=== PATIENT | female | born 1950 | race Hispanic/Latino ===

== ENCOUNTER 2019-07-30 05:30 | Day surgery (SDC) | payer MEDICARE ==
[2019-07-29 10:46] VITALS: BP 141/78
[2019-07-29 10:48] LABS: BASOPHILS % (AUTO) 0.4 % (0.0-5.0); EOSINOPHILS % (AUTO) 1.7 % (0.0-8.0); HEMATOCRIT 37.6 % (36-48); MEAN CORPUSCULAR HEMOGLOBIN 26.7 pg (27.0-33.0); MEAN CORPUSCULAR HGB CONC 32.2 g/dL (32.0-36.0); MONOCYTES % (AUTO) 5.1 % (3.0-13.0); NEUTROPHILS % (AUTO) 65.5 % (40.0-77.0); PLATELET COUNT (AUTO) 273 K/uL (130-400); RED BLOOD CELL COUNT(AUTO) 4.53 MIL/uL (4.00-5.50); RED CELL DISTRIBUTION WIDTH 15.6 % (11.0-15.5); WHITE BLOOD COUNT (AUTO) 6.9 K/uL (4.8-10.8)
[2019-07-29 11:03] LABS: CREATININE 0.8 mg/dL (0.5-1.5); POTASSIUM 4.2 mmol/L (3.5-5.1)
[2019-07-30] VITALS (16 sets, daily range): BP systolic 97–137; BP diastolic 51–75
[~2019-07-30] VITALS: Ht 149.9 cm; Wt 81.3 kg
[~2019-07-30 05:30] MED LIST: ATOR40TA71 PO; Ergocalciferol PO; LISI1TAB29 PO
[2019-07-30] MEDS ORDERED: LACTATED RINGERS 1000ML 1,000 ML IV ONE (05:42)
[2019-07-30] MEDS ORDERED: STRONG IODINE SOLN 14ML BOTTLE ONE (07:07)
[2019-07-30] MEDS ORDERED: ACETIC ACID 0.25% 1,000 ML IRRIG.SOLN ONE (07:07)
[2019-07-30] MEDS ORDERED: PROPOFOL 10 MG/ML 20ML VIAL IV ONE (07:20)
[2019-07-30] MEDS ORDERED: LIDOCAINE PF 2% 5ML ABBOJECT ONE (07:20)
[2019-07-30] MEDS ORDERED: FENTANYL CITRATE PF 50 MCG/1 ML 2ML VIAL ONE (07:21)
[2019-07-30] MEDS ORDERED: MIDAZOLAM HCL 1 MG/ML 2ML VIAL ONE (07:23)
[2019-07-30] MEDS ORDERED: SODIUM CHLORIDE 0.9% 10 ML VIAL ONE (07:38)
[2019-07-30] MEDS ORDERED: PHENYLEPHRINE HCL 10 MG/ML 1ML VIAL IV ONE (07:38)
[2019-07-30] MEDS ORDERED: EPHEDRINE SULFATE 50 MG/ML AMPULE ONE (07:48)
--- NOTE | 2019-07-30 09:08 | NUR ---
ASSESSMENT RECEIVED PT FROM PACU STAFF JOEL LILLY. PT AAO X3. FERNANDO PAD SLIGHT BLEEDING. DENIES ANY PAIN. AT BEDSIDE.
--- NOTE | 2019-07-30 09:25 | NUR ---
DISCHARGE ORAL AND WRITTEN DISCHARGE INSTRUCTIONS GIVEN TO PT AND PTS ALONG WITH PRESCRIPTION. NO OTHER QUESTIONS AT THIS TIME. INSTRUCTED TO FOLLOW DR. DENNY INSTRUCTIONS. NO OTHER QUESTIONS AT THIS TIME.
== END 2019-07-30 09:30 | disposition home or self-care (01) ==
LOC: DAH 05:30
PROVIDERS: ATTEND Obstetrics & Gynecology
DX: N84.0 Polyp of corpus uteri (principal); N84.1 Polyp of cervix uteri; I10 Essential (primary) hypertension; E78.00 Pure hypercholesterolemia, unspecified; E66.9 Obesity, unspecified; Z68.36 Body mass index [BMI] 36.0-36.9, adult; Z98.51 Tubal ligation status; Z72.89 Other problems related to lifestyle; Z79.899 Other long term (current) drug therapy; Z82.49 Family history of ischemic heart disease and other diseases of the circulatory system; Z83.3 Family history of diabetes mellitus
CPT/HCPCS: 36415; 57522; 80048; 85025; 86850; 86900; 86901; 88305; 93005; A4222; A4223; A4351; A4649; A4663; A4930; A6260; J2001; J2250; J2370; J2704; J3010; J3490; J7120 ×2